=== PATIENT | female | born 1995 | race Caucasian/White ===

== ENCOUNTER 2019-05-03 01:41 | Emergency (ER) | payer BC, OTHER ==
[2019-05-03] MEDS ORDERED: Ondansetron PF 4 MG/2 ML Vial ONE (02:04)
== END 2019-05-03 05:52 | disposition home or self-care (01) ==
LOC: ERS 01:41
DX: F10.129 Alcohol abuse with intoxication, unspecified (principal); R11.10 Vomiting, unspecified
CPT/HCPCS: 80307; 99284; J2405